=== PATIENT | male | born 1990 | race Caucasian/White ===

== ENCOUNTER 2019-05-17 22:19 | Inpatient (IN) | payer OTHER ==
[~2019-05-17] VITALS: Ht 180.3 cm; Wt 104.0 kg
[2019-05-17] MEDS ORDERED: NICOTINE 21MG/24HR 1 EA TRANSDERMAL TD ONE (22:45)
[2019-05-17 22:55] LABS: HEMATOCRIT 43.1 % (42.0-52.0); MEAN CORPUSCULAR HEMOGLOBIN 32.7 pg (27.0-33.0); MEAN CORPUSCULAR HGB CONC 34.8 g/dl (32.0-36.5); MEAN CORPUSCULAR VOLUME 93.9 fl (80.0-96.0); PLATELET COUNT, AUTOMATED 291 10^3/uL (150-450); RED BLOOD COUNT 4.59 10^6/uL (4.30-6.10); WHITE BLOOD COUNT 6.7 10^3/uL (4.0-10.0)
--- NOTE | 2019-05-17 23:05 | REPVR ---
PROCEDURE INFORMATION: Exam: CT Cervical Spine Without Contrast Exam date and time: 05/17/2019 10:49 PM Clinical history: 28 years old, male; Injury or trauma; Injury history: Attempt hanging; Initial encounter; Constriction/strangulation; Additional info: Attempted hanging TECHNIQUE: Imaging protocol: Computed tomography images of the cervical spine without contrast. Radiation optimization: All CT scans at this facility use at least one of these dose optimization techniques: automated exposure control; mA and/or kV adjustment per patient size (includes targeted exams where dose is matched to clinical indication); or iterative reconstruction. COMPARISON: No relevant prior studies available. FINDINGS: No segmental vertebral malalignment. Vertebral body height is maintained at all levels. No acute fracture. No destructive or blastic cervical spine osseous lesion. Intervertebral disc spaces are appropriate for age. Hyoid bone and laryngeal cartilage structures appear normal. Soft tissues show no concerning abnormality or asymmetry. Imaged lung apices demonstrate no concerning abnormality. No apical pneumothorax. IMPRESSION: No acute fracture or traumatic segmental cervical malalignment. No significant soft tissue injury or evidence of a hyoid bone fracture Electronically signed by: Artie Hernández On 05/17/2019 23:04:26 PM
[2019-05-17 23:31] LABS: ACETAMINOPHEN LEVEL < 2.0 UG/ML (10.0-30.0); ALBUMIN 4.2 GM/DL (3.2-5.2); ALT/SGPT 80 U/L (12-78); BILIRUBIN,DIRECT < 0.1 MG/DL (0.0-0.2); BILIRUBIN,TOTAL 0.3 MG/DL (0.2-1.0); BLOOD UREA NITROGEN 16 MG/DL (7-18); CARBON DIOXIDE LEVEL 24 MEQ/L (21-32); CHLORIDE LEVEL 109 MEQ/L (98-107); CREATININE FOR GFR 1.16 MG/DL (0.70-1.30); GLOMERULAR FILTRATION RATE > 60.0 (>60); GLUCOSE, FASTING 111 MG/DL (70-100); POTASSIUM SERUM 3.9 MEQ/L (3.5-5.1); SALICYLATE LEVEL < 1.7 MG/DL (5.0-30.0); SODIUM LEVEL 142 MEQ/L (136-145); TOTAL PROTEIN 7.7 GM/DL (6.4-8.2)
[2019-05-17 23:47] LABS: AMPHETAMINES LEVEL URINE NEGATIVE (NEGATIVE); BARBITURATES URINE NEGATIVE (NEGATIVE); BENZODIAZEPINES URINE NEGATIVE (NEGATIVE); CANNABINOIDS URINE NEGATIVE (NEGATIVE); COCAINE METABOLITE URINE NEGATIVE (NEGATIVE); METHADONE URINE NEGATIVE (NEGATIVE); OPIATES URINE NEGATIVE (NEGATIVE); PHENCYCLIDINE URINE NEGATIVE (NEGATIVE)
[2019-05-18] MEDS ORDERED: ACETAMINOPHEN TAB 650MG DOSE (2X325MG) PO ONE (00:30)
[2019-05-18] MEDS ORDERED: MAALOX 30 ML SUSP *UDC PO PRN (05:30)
[2019-05-18] MEDS ORDERED: ACETAMINOPHEN TAB 650MG DOSE (2X325MG) PO PRN (05:30)
[2019-05-18] MEDS ORDERED: MOM 30ML SUSPENSION UDC PO PRN (05:30)
[2019-05-18 06:26] VITALS: BP 157/72
[2019-05-18] MEDS ORDERED: NICOTINE 21MG/24HR 1 EA TRANSDERMAL TD SCH (09:00)
--- NOTE | 2019-05-18 11:45 | MHHPEPDOC ---
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 He describes that he doesn't remember the details of what happened but reports that he had been drinking heavily. He reports he drinks heavily on Fridays and had been drinking a huge amount of alcohol, in anticipation of being deployed to [facility] to the [facility] reporting that he's never been deployed and this was fairly stressful. He reports that he has fairly socially isolated in this area, has no significant social connection, lives in the [facility]. For the last 2 years he reports that he has had isolation as his family lives overseas in [place] and that otherwise he had become somewhat depressed with some loss of interest, insomnia, difficulty concentrating in the setting of these stressors of going to field training in the next few weeks. He reported that his alcohol had increased. Review Of Systems Depression: As above. Anxiety: The patient denies any excessive worry associated with physical symptoms. They deny any experience of discreet panic in the past. Cindy: The patient denies any episodes of euphoria/dysphoria associated with decreased need for sleep, hedonism, talkatively or impulsivity lasting longer than 5 days. Psychotic: The patient denies any experiences of auditory or visual hallucinations. They deny any episodes of paranoia or delusional thinking in the past Trauma: The patient denies any traumatic events associated with nightmares or intrusive thoughts. Borderline: The patient screens negative for borderline personality at this junction. Past Psychiatric History The patient reports no history of psychiatric admissions, medication trials or current follow up. Allergies Please see below. Family Psychiatric History The patient denies/is unaware any history of mental health history including addictions and suicide. Social History The patient is an unmarried man who lives in the [facility], who's been in the for 2 years, no legal trouble, has no children, completed high school without difficulty. His parents are and has a poor relationship with his mother. He reports he has a good relationship with his father who lives in [place]. He has 2 siblings, one sister, one step-sister of which he generally d oesn't have an amenable relationship with. 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 He enjoys working on cars and doing various mechanical activities. Substance Abuse History The patient, as above, reports drinking a significant amount of alcohol. However, he reports that he has not been triaged into treatment before and has not had any major DUIs or other illegal charges. He reports smoking tobacco, roughly two packs a day. He denies any significant illicit drug use. Medical History Patient has no significant past medical history. Mental Status Examination General: Well dressed with good hygiene Speech: Spontaneous and fluid Thought processes: Linear and logical MSK: Smooth and coordinated gait, no signs of tremors or involuntary orofacial movements Thought content: Future orientated Abstract reasoning, and computation: Intact Description of associations: Intact Description of abnormal or psychotic thoughts: Denies any suicidal or homicidal ideation. Denies any auditory or visual hallucinations. Does not appear to be responding to internal stimuli. Does not appear to be endorsing any bizarre or paranoid ideation. Judgment: fair Insight: fair Orientation: Alert and orientated 3 Cognition: Grossly normal Recent and remote memory: Intact Attention span and concentration: Intact Fund of knowledge: Adequate Mood: "okay" Affect: Mildly anxious Diagnoses Unspecified depressive disorder. More likely adjustment versus MDD. Alcohol use disorder, unspecified. Tobacco use disorder, unspecified. Assessment and Plan Unspecified depressive disorder: Start Wellbutrin 150 mg daily. Discussed risks, benefits, potential side effects with patient as well as alternatives. The patient selected this out of range. Alcohol use disorder: Unlikely to need CIWA, will continue to monitor. Tobacco use disorder: Nicotine replaced now with Nicotrol as an outpatient. Disposition Patient will need a continued admission, likely lasting longer than 2 midnights in order to treat his depression and suicide risk. Problem List 1. Risk for suicide. 2. Depression. 3. Substance use. Initial Treatment Plan 1. Patient was admitted on a 9.39 legal status. 2. Complete history was obtained. 3. With patients permission, family will be contacted and database will be expanded. 4. Patients medication regimen will be reviewed and changed accordingly. 5. Patient will be provided with protected environment. 6. Patient will be treated with individual, group, and milieu therapies. 7. Patient will receive supportive psych-education. 8. Discharge planning will commence immediately. 9. Outpatient follow-up treatment will be strongly recommended. 10. The initial treatment plan will focus initially on: Estimated Length Of Stay 3 days. Time Spent 45 minutes. Vital Signs Vital Signs Date Time Temp Pulse Resp B/P (MAP) Pulse Ox O2 Delivery O2 Flow Rate FiO2 05/18/19 06:26 99.7 82 18 157/72 (100) 05/17/19 23:49 97 Room Air Laboratory Data 24H Labs Laboratory Tests 2 05/17/19 22:40: Nucleated Red Blood Cells % (auto) 0.0, Anion Gap 9, Glomerular Filtration Rate > 60.0, Calcium Level 8.0L, Total Bilirubin 0.3, Direct Bilirubin < 0.1, Aspartate Amino Transf (AST/SGOT) 51H, Alanine Aminotransferase (ALT/SGPT) 80H, Alkaline Phosphatase 89, Total Protein 7.7, Albumin 4.2, Albumin/Globulin Ratio 1.20, Thyroid Stimulating Hormone (TSH) 1.640, Salicylates Level < 1.7L, Urine Opiates Screen NEGATIVE, Urine Methadone Screen NEGATIVE, Acetaminophen Level < 2.0L, Urine Barbiturates Screen NEGATIVE, Urine Phencyclidine Screen NEGATIVE, Urine Amphetamines Screen NEGATIVE, Urine Benzodiazepines Screen NEGATIVE, Urine Cocaine Metabolite Screen NEGATIVE, Urine Cannabinoids Screen NEGATIVE, Ethyl Alcohol Level 0.230H CBC/BMP Laboratory Tests 05/17/19 22:40 Medications No Active Prescriptions or Reported Meds Allergies Coded Allergies: No Known Allergies (Unverified , 05/17/19) EZEKIEL CARLSON DO May 18, 2019 11:45
[2019-05-18] MEDS: NICOTINE 21MG/24HR 1 EA TRANSDERMAL TD SCH (12:12)
--- NOTE | 2019-05-18 12:56 | HPEPDOC ---
[facility] Medical History & Physical Date of Admission May 18, 2019 Date of Service: May 18, 2019 History and Physical CHIEF COMPLAINT: Suicidal attempt HISTORY OF PRESENT ILLNESS: Patient is a 28M with no significant PMD is admitted after suicidal attempt. He reported that he was drunk and made an attempt but sustained no injury from it. He reported having no medical problems and no physical complaints at this time but stated that he may have sprained his R. several weeks ago and has some intermittent pain and weakness in the R. foot. Pain noted to be at the lateral malleolus but not constant. He also reports having problems sustaining an erection from time to time but has been a chronic issue for years. PAST MEDICAL HISTORY: Refer to HPI PAST SURGICAL HISTORY: L. knee surgery SOCIAL HISTORY: Smokes 1/2 ppd with binge drinking about once a week. Denies illicit drug use. FAMILY HISTORY: Alcoholism in multiple family members ALLERGIES: Please see below. REVIEW OF SYSTEMS: 10 point review of system negative except as stated in HPI HOME MEDICATIONS: Please see below. PHYSICAL EXAMINATION: General: No acute distress, Alert Eyes: Normal sclera, EOMI, REY HENT: Atraumatic, neck supple, moist mucous membranes Cardiovascular: Normal rate, normal rhythm. No murmurs appreciated. Pulmonary: Clear to auscultation b/l, no wheezing GI: Soft, nontender, nondistended Skin: Warm and dry MSK: minimal tenderness to R. lateral malleolus Neuro: CN grossly intact. No focal deficits. Strengths equal b/l. Psych: oriented x 3 LABORATORY DATA: See below. IMAGING: CT cervical- R. Ankle XR- MICROBIOLOGY: Please see below. ASSESSMENT AND PLAN: 1. Suicidal ideation - Denies current suicidal ideation. - To receive evaluation and treatment per Psych. 2. R. ankle pain - Very minimal and intermittent. Likely a sprain that will take time to heal. - Recommend reduced physical activity until improvement, ice and OTC tylenol/NSAID as needed. - XR obtained, no obvious fracture noted by myself. f/u official report. 3. Erectile dysfunction - difficulty sustaining prolong erection. - Could be 2/2 depression vs. excess alcohol use? - Recommend reducing alcohol intake and follow up with PMD post discharge. Patient appear medically stable at this time. Will sign off, please call back if needed. Vital Signs Vital Signs Date Time Temp Pulse Resp B/P (MAP) Pulse Ox O2 Delivery O2 Flow Rate FiO2 05/18/19 06:26 99.7 82 18 157/72 (100) 05/17/19 23:49 97 Room Air Laboratory Data Labs 24H Laboratory Tests 2 05/17/19 22:40: Nucleated Red Blood Cells % (auto) 0.0, Anion Gap 9, Glomerular Filtration Rate > 60.0, Calcium Level 8.0L, Total Bilirubin 0.3, Direct Bilirubin < 0.1, Aspart ate Amino Transf (AST/SGOT) 51H, Alanine Aminotransferase (ALT/SGPT) 80H, Alkaline Phosphatase 89, Total Protein 7.7, Albumin 4.2, Albumin/Globulin Ratio 1.20, Thyroid Stimulating Hormone (TSH) 1.640, Salicylates Level < 1.7L, Urine Opiates Screen NEGATIVE, Urine Methadone Screen NEGATIVE, Acetaminophen Level < 2.0L, Urine Barbiturates Screen NEGATIVE, Urine Phencyclidine Screen NEGATIVE, Urine Amphetamines Screen NEGATIVE, Urine Benzodiazepines Screen NEGATIVE, Urine Cocaine Metabolite Screen NEGATIVE, Urine Cannabinoids Screen NEGATIVE, Ethyl Alcohol Level 0.230H CBC/BMP Laboratory Tests 05/17/19 22:40 Home Medications No Active Prescriptions or Reported Meds Allergies Coded Allergies: No Known Allergies (Unverified , 05/17/19) A-FIB/CHADSVASC A-FIB History Current/History of A-Fib/PAF?: No SUSANA SOLIS MD May 18, 2019 12:56
[2019-05-18 17:47] VITALS: BP 108/54
[2019-05-18] MEDS ORDERED: buPROPion **XL** TABLET 150MG (WELLBUTRIN XL) PO SCH (21:00)
--- NOTE | 2019-05-19 03:20 | REP ---
Clinical: Trauma . Technique: AP, lateral, bilateral oblique views right ankle . Findings: No acute fracture or dislocation. Skeletal structures and joint spaces are intact and normal. Ankle mortise appears stable. No subcutaneous emphysema or radiodense foreign body. Impression: Normal right ankle radiograph series. Electronically Signed by Renny Cruz MD 05/19/2019 03:12 A
[2019-05-19 06:39] VITALS: BP 116/62
[2019-05-19] MEDS: NICOTINE 21MG/24HR 1 EA TRANSDERMAL TD SCH (08:41)
[2019-05-19] MEDS: buPROPion **XL** TABLET 150MG (WELLBUTRIN XL) PO SCH (08:41)
--- NOTE | 2019-05-19 09:53 | MHIPNPDOC ---
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 He describes that he doesn't remember the details of what happened but reports that he had been drinking heavily. He reports he drinks heavily on Fridays and had been drinking a huge amount of alcohol, in anticipation of being deployed to [facility] to the [facility] reporting that he's never been deployed and this was fairly stressful. He re ports that he has fairly socially isolated in this area, has no significant social connection, lives in the [facility]. For the last 2 years he reports that he has had isolation as his family lives overseas in [place] and that otherwise he had become somewhat depressed with some loss of interest, insomnia, difficulty concentrating in the setting of these stressors of going to [employer] raining in the next few weeks. He reported that his alcohol had increased. Interval History The patient is met with today. He reports that he feels as though he is improving with his depression and that he has gained more energy and has had less fatigue. He reports he is feeling closer to ready for discharge. He reports that he did have some unusual "weird sensations" from the Wellbutrin today, but wishes to continue with it as they quickly disappeared and he wishes to help his performance in the . He has been attending groups. No major behavioral problems overnight. Staff noted him to be friendly and amenable. He still remains isolative at times, playing cards by himself. Review Of Systems General: Denies fever or appetite changes Cardiovascular: Denies chest pain or palpitations GI: Denies Nausea, vomiting, or bowel changes Respiratory: Denies shortness of breath or cough Neuro: Denies dizziness, tremors Derm: Denies any rashes or pruritus : Denies any dysuria or urinary dysfunction MSK: Denies any muscle tightness or stiffness HEENT: Denies any vision changes or headaches Heme/Lymph: Denies any bruising or bleeding Endo: Denies any cold/heat intolerance or water intake changes Psychotherapy None on this visit. Vital Signs Reviewed. Mental Status Examination General: Well dressed with good hygiene Speech: Spontaneous and fluid Thought processes: Linear and logical MSK: Smooth and coordinated gait, no signs of tremors or involuntary orofacial movements Thought content: Future orientated Abstract reasoning, and computation: Intact Description of associations: Intact Description of abnormal or psychotic thoughts: Denies any suicidal or homicidal ideation. Denies any auditory or visual hallucinations. Does not appear to be responding to internal stimuli. Does not appear to be endorsing any bizarre or paranoid ideation. Judgment: fair Insight: fair Orientation: Alert and orientated 3 Cognition: Grossly normal Recent and remote memory: Intact Attention span and concentration: Intact Fund of knowledge: Adequate Mood: "okay" Affect: Mildly improved Diagnoses Unspecified depressive disorder. More likely adjustment versus MDD. Alcohol use disorder, unspecified. Tobacco use disorder, unspecified. Assessment and Plan Unspecified depressive disorder: Continue Wellbutrin 150 mg daily. Alcohol use disorder: Unlikely to need CIWA, will continue to monitor. Tobacco use disorder: Nicotine replaced now with Nicotrol as an outpatient. Disposition Possible discharge Wednesday. Time Spent 20 minutes [id number] Vital Signs Vital Signs Date Time Temp Pulse Resp B/P (MAP) Pulse Ox O2 Delivery O2 Flow Rate FiO2 05/19/19 06:39 97.0 50 12 116/62 (80) 05/17/19 23:49 97 Room Air Current Medications Current Medications Medications (Trade) Dose Ordered Sig/Christopher Route PRN Reason Start Time Stop Time Status Last Admin Dose Admin Acetaminophen (Tylenol Tab) 650 mg Q6HP PRN PO HEADACHE or DISCOMFORT 05/18/19 05:30 Al Hydrox/Mg Hydrox/Simethicone (Mylanta) 30 ml Q4HP PRN PO HEARTBURN/INDIGESTION 05/18/19 05:30 Bupropion HCl (Wellbutrin Xl) 150 mg QAM PO 05/18/19 21:00 05/18/19 21:26 DC Bupropion HCl (Wellbutrin Xl) 150 mg QAM PO 05/19/19 09:00 05/19/19 08:41 Home Med (Med Rec Complete!) ASDIRECTED XX 05/18/19 00:30 05/18/19 00:25 DC Magnesium Hydroxide (Milk Of Magnesia) 30 ml DAILYPRN PRN PO CONSTIPATION 05/18/19 05:30 Nicotine (Nicoderm Cq 21mg) 1 patch DAILY TD 05/18/19 09:00 05/18/19 11:49 DC Nicotine (Nicoderm Cq 21mg) 1 patch DAILY TD 05/18/19 09:00 05/19/19 08:41 Trazodone HCl (Desyrel) 50 mg QHSP PRN PO INSOMNIA 05/18/19 05:30 Allergies Coded Allergies: No Known Allergies (Unverified , 05/17/19) EZEKIEL CARLSON DO May 19, 2019 09:53
[2019-05-19 16:43] VITALS: BP 118/66
[2019-05-19] MEDS: traZODone 50 MG TAB PO PRN (23:24)
[2019-05-20 07:01] VITALS: BP 121/58
[2019-05-20] MEDS: NICOTINE 21MG/24HR 1 EA TRANSDERMAL TD SCH (08:16)
[2019-05-20] MEDS: buPROPion **XL** TABLET 150MG (WELLBUTRIN XL) PO SCH (08:16)
[2019-05-20 16:35] VITALS: BP 125/60
--- NOTE | 2019-05-20 21:10 | MHIPN ---
DATE: 05/20/2019 VITAL SIGNS: Blood pressure 125/60, pulse 69, temperature 98.2. CHIEF COMPLAINT: Feels better. SUBJECTIVE: He is seen for followup in the presence of staff. He feels better and that "if it was not for the drinking that he would not have attempted to strangle himself." He says that this has put him off taking any alcohol. MENTAL STATUS EXAMINATION: Neat, cooperative. There is no agitation. No psychomotor retardation. He is coherent. Affect is broad. Appears relaxed. No evidence of any thoughts of harming himself or anyone else. He denies any thoughts of hurting himself. No evidence of any psychosis. Cognition is grossly intact. Judgment and insight possibly somewhat improved. ASSESSMENT: 1. Unspecified depressive disorder. 2. Adjustment disorder with depressed mood. 3. Alcohol use disorder. PLAN: Continue current care, observations and encourage participation in activities in the unit. Further recommendations will be made depending on the clinical picture. It is anticipated that his stay here will be short.
[2019-05-20] MEDS: traZODone 50 MG TAB PO PRN (22:03)
[2019-05-21 06:42] VITALS: BP 95/58
[2019-05-21] MEDS: buPROPion **XL** TABLET 150MG (WELLBUTRIN XL) PO SCH (08:43)
[2019-05-21] MEDS: NICOTINE 21MG/24HR 1 EA TRANSDERMAL TD SCH (08:43)
--- NOTE | 2019-05-21 15:40 | MHIPN ---
DATE: 05/21/2019 VITAL SIGNS: Blood pressure 95/58, pulse 51, temperature 97.5. CHIEF COMPLAINT: Feels good. SUBJECTIVE: He is seen for followup in the presence of staff. Says feels good and is making a list of things that he needs to work on. He feels more confident, less anxious and less depressed. No cravings. MENTAL STATUS EXAMINATION: Neat, cooperative. There is no agitation. No psychomotor retardation. He is coherent. Affect is broad in range. Denies any thoughts of harming himself or anyone else. No evidence of any psychosis. Cognition is grossly intact. Judgment good. Insight improved. ASSESSMENT: 1. Unspecified depressive disorder, this is more likely adjustment disorder with depressed mood. 2. Alcohol use disorder. PLAN: Continue current care and observations. He is participating in activities in the unit. He will be seeing the treatment team and the psychiatrist tomorrow. Arrangements can be made for discharge shortly.
[2019-05-21 16:42] VITALS: BP 130/73
[2019-05-22 06:50] VITALS: BP 99/48
[2019-05-22] MEDS: buPROPion **XL** TABLET 150MG (WELLBUTRIN XL) PO SCH (09:02)
[2019-05-22] MEDS: NICOTINE 21MG/24HR 1 EA TRANSDERMAL TD SCH (09:03)
--- NOTE | 2019-05-22 10:01 | MHDSPDOC ---
[facility] Discharge Summary Discharge Summary DATE OF ADMISSION: May 18, 2019 at 05:26 DATE OF DISCHARGE: 05/22/19 Ramón Gonsales Discharge Ramón Gonsales Select Gender MRN: N/A Date of : MM/DD/YYYY Date of Service: 05/22/2019 Diagnoses Unspecified depressive disorder. More likely adjustment versus MDD. Alcohol use disorder, unspecified. Tobacco use disorder, unspecified. 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 He describes that he doesn't remember the details of what happened but reports that he had been drinking heavily. He reports he drinks heavily on Fridays and had been drinking a huge amount of alcohol, in anticipation of being deployed to [facility] to the [facility] reporting that he's never been deployed and this was fairly stressful. He reports that he has fairly socially isolated in this area, has no significant social connection, lives in the [facility]. For the last 2 years he reports that he has had isolation as his family lives overseas in [place] and that otherwise he had become somewhat depressed with some loss of interest, insomnia, difficulty concentrating in the setting of these stressors of going to field training in the next few weeks. He reported that his alcohol had increased. Consultants Involved Hospitalist/PCP screening Treatment and Progress On The Unit The patient was admitted to the inpatient unit and subsequently observed. He was started on Wellbutrin 150 mg daily with positive improvements in his mood, energy, and ability to attend to his needs. He was able to become reflective engaged in this treatment, going to groups. On the day of discharge he had been converted to voluntary prior to the weekend starting and he wished to be dischar [facility]. He had not been demonstrating any suicidal or homicidal ideation during the entirety of his stay. He was able to demonstrate improved insight, good cooperation of treatment and was not impaired by his mental illness to any appreciable degree. He denied any homicidal ideation and declined further voluntary admission and thus was discharged in good luzmaria. Discharge Assessment 28-year-old man with a history of alcohol intoxication who presents with depression. Unclear if adjustment versus substance-induced versus MDD. However, his precipitous resolution suggests adjustment combined with alcohol as the probable cause of his presentation. Mental Status Examination General: Well dressed with good hygiene Speech: Spontaneous and fluid Thought processes: Linear and logical MSK: Smooth and coordinated gait, no signs of tremors or involuntary orofacial movements Thought content: Future orientated Abstract reasoning, and computation: Intact Description of associations: Intact Description of abnormal or psychotic thoughts: Denies any suicidal or homicidal ideation. Denies any auditory or visual hallucinations. Does not appear to be responding to internal stimuli. Does not appear to be endorsing any bizarre or paranoid ideation. Judgment: fair Insight: fair Orientation: Alert and orientated 3 Cognition: Grossly normal Recent and remote memory: Intact Attention span and concentration: Intact Fund of knowledge: Adequate Mood: "okay" Affect: Euthymic with a full range Follow Up The social work team worked during the predischarge meeting in order to evaluate for further issues of lethality address them fully before discharge. They worked on safety planning with the patient's family members in order to ensure that the patient will have a safe and effective discharge. Time Spent The amount of time spent in the coordination of care and face to face for this patient was approximately 30 minutes. Vital Signs/I&Os Vital Signs Date Time Temp Pulse Resp B/P (MAP) Pulse Ox O2 Delivery O2 Flow Rate FiO2 05/22/19 06:50 97.5 53 14 99/48 (65) 05/20/19 07:01 Room Air 05/17/19 23:49 97 Medications Scheduled Bupropion Hcl (Bupropion Xl) 150 Mg Tab.er.24h, 150 MG PO QAM for mood for 7 Days, #7 Nicotine (Nicotine Patch) 21 Mg Patch.td24, 1 PATCH TD DAILY for tobacco for 30 Days, #30 Nicotine (Nicotrol) 10 Mg Cartridge, 1 PUFF INH ASDIRECTED for tobacco for 30 Days, #1 Allergies Coded Allergies: No Known Allergies (Unverified , 05/17/19) EZEKIEL CARLSON DO May 22, 2019 10:01
[2019-05-22] MEDS ORDERED: NICO21PAT TD (10:03)
[2019-05-22] MEDS ORDERED: BUPR150T3 PO (10:03)
[2019-05-22] MEDS ORDERED: NICOINH INH (10:26)
== END 2019-05-22 13:40 | disposition home or self-care (01) | DRG 881 ==
LOC: M ED 22:19 → M ED INP 05-18 05:26 → M PSY 05-18 06:00
PROVIDERS: ADMIT Psychiatry & Neurology Psychiatry; ATTEND Psychiatry & Neurology Addiction Medicine
DX: F32.9 Major depressive disorder, single episode, unspecified (principal); F43.21 Adjustment disorder with depressed mood; F10.20 Alcohol dependence, uncomplicated; F17.200 Nicotine dependence, unspecified, uncomplicated; Z81.1 Family history of alcohol abuse and dependence; M25.571 Pain in right ankle and joints of right foot; N52.9 Male erectile dysfunction, unspecified

== ENCOUNTER 2019-10-22 18:07 | Emergency (ER) | payer OTHER ==
[~2019-10-22] VITALS: Ht 177.8 cm; Wt 108.9 kg
[~2019-10-22 18:07] MED LIST: BUPR150T3 PO; NICO21PAT TD; NICOINH INH
[2019-10-22] MEDS ORDERED: BENZONATATE 100 MG CAP PO ONE (19:15)
[2019-10-22] MEDS ORDERED: GI COCKTAIL 50ML BTL(HYOSCYAMINE/MAALOX/LIDOCAINE VISCOUS)(1:3:1) PO ONE (19:15)
--- NOTE | 2019-10-22 19:27 | REPVR ---
PROCEDURE INFORMATION: Exam: CT Chest Without Contrast Exam date and time: 10/22/2019 7:09 PM Age: 28 years old Clinical indication: Cough; Additional info: Cough x 4 mo, former smoker, SOB x weeks TECHNIQUE: Imaging protocol: Computed tomography of the chest without contrast. Axial, coronal and sagittal reformatted images were created and reviewed. 3D rendering: MIP and/or 3D reconstructed images were created by the technologist. Radiation optimization: All CT scans at this facility use at least one of these dose optimization techniques: automated exposure control; mA and/or kV adjustment per patient size (includes targeted exams where dose is matched to clinical indication); or iterative reconstruction. COMPARISON: No relevant prior studies available. FINDINGS: Lungs: Mild central peribronchial thickening, suggestive of airway inflammation. No consolidation. Pleural space: Unremarkable. No pneumothorax. No pleural effusion. Heart: Unremarkable. No cardiomegaly. No pericardial effusion. Aorta: Unremarkable. No aneurysm. Lymph nodes: No pathologically enlarged lymph nodes. Bones/joints: No acute osseous abnormality. Soft tissues: Unremarkable. IMPRESSION: Mild central peribronchial thickening, suggestive of airway inflammation. Electronically signed by: Jack Patel On 10/22/2019 19:27:22 PM
[2019-10-22 19:33] LABS: BASO % 0.4 % (0.0-1.0); EOS # 0.1 10^3/uL (0.0-0.5); EOS % 1.6 % (0.0-3.0); HEMATOCRIT 43.2 % (42.0-52.0); HEMOGLOBIN 14.8 g/dl (13.5-17.5); LYMPH # 2.3 10^3/uL (1.5-5.0); MEAN CORPUSCULAR HEMOGLOBIN 31.9 pg (27.0-33.0); MEAN CORPUSCULAR HGB CONC 34.3 g/dl (32.0-36.5); MEAN CORPUSCULAR VOLUME 93.1 fl (80.0-96.0); MONO # 0.6 10^3/uL (0.0-0.8); MONO % 9.5 % (0.0-5.0); NEUTROPHILS # 3.6 10^3/uL (1.5-8.5); NEUTROPHILS % 54.1 % (36.0-66.0); PLATELET COUNT, AUTOMATED 276 10^3/uL (150-450); RED BLOOD COUNT 4.64 10^6/uL (4.30-6.10); WHITE BLOOD COUNT 6.7 10^3/uL (4.0-10.0)
[2019-10-22] MEDS ORDERED: PRED20TA PO (20:04)
[2019-10-22] MEDS ORDERED: BREAMIS10 MC (20:04)
[2019-10-22] MEDS ORDERED: TESS100C PO (20:04)
[2019-10-22] MEDS ORDERED: PROAAER10 INH (20:04)
[2019-10-22] MEDS ORDERED: MUCI1TAB18 PO (20:06)
[2019-10-22 20:11] VITALS: BP 121/63
[2019-10-22] MEDS ORDERED: predniSONE 20 MG TAB PO ONE (20:15)
--- NOTE | 2019-10-22 21:26 | ED PDOC ---
Post-Departure Follow-Up I called patient and informed him of the negative respiratory panel results and to followup with [facility] for further evaluation. Pt had no questions. GRETEL MADRID PA-C Oct 22, 2019 21:26
== END 2019-10-22 20:17 | disposition home or self-care (01) ==
LOC: M ED 18:07
DX: R05 Cough (principal); R06.02 Shortness of breath; K21.9 Gastro-esophageal reflux disease without esophagitis; Z87.891 Personal history of nicotine dependence